=== PATIENT | female | born 1985 | race Caucasian/White ===

== ENCOUNTER 2016-11-02 02:49 | Emergency (ER) | payer SELFPAY ==
[~2016-11-02] VITALS: Ht 170.2 cm; Wt 150.0 kg
[~2016-11-02 02:49] MED LIST: ALEVE220 M2 PO; AUGMENTIN875 MG PO; BACTRIM,SEPT1 TABLET PO; BACTROBAN NASAL1 G1 BOTH NARES; CITALOPRAM HBR20 MG PO; COUMADIN10 MG PO; Coumadin,Jantoven PO; DICLOXACILLIN500 MG PO; DILAUDID2 MG PO; Diabeta,Micronase PO; ENDOCET 5-3251 EACH PO; GLUCOPHAGE500 MG PO; HIBICLENS118 ML TP; KEFLEX500 MG PO; MACROBID100 MG PO; MEDROL DOSEPAK4 MG PO; METFORMIN HCL500 MG PO; MOTRIN600 MG PO; MOTRIN800 MG PO; NAPROSYN375 MG PO; NAPROXEN500 MG PO; NARCAN4 MG NS; NOHOMEMEDS; NORCO 7.5/321 TABLET PO; PERCOCET 5/31 TABLET PO; TORADOL10 MG PO; TYLENOL EXTRA500 MG PO; ULTRAM50 MG PO; VALACYCLOVIR500 MG PO; VALIUM5 MG PO; ZOFRAN ODT4 MG PO
[2016-11-02 02:57] VITALS: BP 139/90
== END 2016-11-02 04:01 | disposition left against medical advice (07) ==
LOC: EME 02:49
DX: T40.2X1A Poisoning by other opioids, accidental (unintentional), initial encounter (principal); R10.30 Lower abdominal pain, unspecified; E11.9 Type 2 diabetes mellitus without complications; F17.200 Nicotine dependence, unspecified, uncomplicated; Z87.442 Personal history of urinary calculi; Z86.711 Personal history of pulmonary embolism
CPT/HCPCS: 99281; 99284; J2310

== ENCOUNTER 2017-03-19 20:30 | Emergency (ER) | payer OTHER ==
[~2017-03-19] VITALS: Ht 165.1 cm; Wt 109.0 kg
[2017-03-19 21:41] LABS: HEMATOCRIT 37.6 % (36.0-46.0); MCH 27.3 PG (29.0-34.0); MCV 82.8 FL (83-99); MEAN PLAT.VOLUME 9.5 uM^3 (9.5-12.4); PLATELET COUNT 177 K/uL (156-360); RBC DIS.WIDTH-CV 13.6 % (11.8-14.6); RBC DIS.WIDTH-SD 40.5 % (39-53); RED BLOOD COUNT 4.54 M/uL (3.80-5.20); WHITE BLOOD COUNT 14.4 K/uL (4.1-10.2)
[2017-03-19 21:50] LABS: CHLORIDE 104 mEq/L (99-109); POTASSIUM 3.4 mEq/L (3.7-5.4); SODIUM 137 mEq/L (136-147)
[2017-03-19 21:52] LABS: GLUCOSE 316 mg/dL (70-99)
[2017-03-19 21:53] LABS: ANION GAP 11 MEQ/L (2-14)
[2017-03-19 21:56] LABS: GFR ESTIMATE (CALCULATED) > 59 mL/min/; UREA NITROGEN (BUN) 8 mg/dL (9-23)
[2017-03-19 22:06] LABS: INTER. NORMALIZED RATIO 1.1; PROTHROMBIN TIME 11.5 (9.2-11.2)
[2017-03-19 22:39] LABS: ABS NEUTROPHIL COUNT 13.9; ANISOCYTOSIS 1+; EOSINOPHIL ABS CT 0; INSTRUMENT ABS NEUTROPHIL CT 13.8 K/uL; LYMPHOCYTES 1.8 % (15.0-45.0); PLAT.SUFFICIENCY DECREASED; SEG.NEUTROPHILS 58.4 % (46.0-76.0)
[2017-03-19] MEDS ORDERED: ULTRAM50 MG PO (23:57)
[2017-03-19] MEDS ORDERED: FLEXERIL10 MG PO (23:57)
[2017-03-20 00:25] VITALS: BP 103/65
== END 2017-03-20 00:26 | disposition home or self-care (01) ==
LOC: EME 20:30 → EXP 20:30
PROVIDERS: Emergency Medicine
DX: M54.2 Cervicalgia (principal); M54.6 Pain in thoracic spine; E11.9 Type 2 diabetes mellitus without complications; Z79.84 Long term (current) use of oral hypoglycemic drugs; Z86.711 Personal history of pulmonary embolism; J45.909 Unspecified asthma, uncomplicated; Z87.442 Personal history of urinary calculi; F17.200 Nicotine dependence, unspecified, uncomplicated; Z91.018 Allergy to other foods
CPT/HCPCS: 71010; 71275; 80048; 85025; 85610; 85730; 93005; 99281; 99285; J1885; J7030

== ENCOUNTER 2017-05-23 20:04 | Emergency (ER) | payer OTHER ==
[~2017-05-23] VITALS: Ht 165.1 cm; Wt 104.5 kg
[~2017-05-23 20:04] MED LIST changes: +FLEXERIL10 MG PO
[2017-05-23 21:07] LABS: HEMATOCRIT 36.2 % (36.0-46.0); MCH 27.4 PG (29.0-34.0); MCHC 32.6 G/DL (30.0-36.0); MCV 84.2 FL (83-99); MEAN PLAT.VOLUME 9.5 uM^3 (9.5-12.4); PLATELET COUNT 181 K/uL (156-360); RBC DIS.WIDTH-CV 13.4 % (11.8-14.6); RBC DIS.WIDTH-SD 41.2 % (39-53)
[2017-05-23 21:22] LABS: CHLORIDE 101 mEq/L (99-109); POTASSIUM 3.9 mEq/L (3.7-5.4); SODIUM 138 mEq/L (136-147)
[2017-05-23 21:24] LABS: GLUCOSE 131 mg/dL (70-99)
[2017-05-23 21:25] LABS: ANION GAP 13 MEQ/L (2-14)
[2017-05-23 21:26] LABS: TOTAL BILIRUBIN 0.4 mg/dL (0.0-1.0)
[2017-05-23 21:27] LABS: ALKALINE PHOSPHATASE 87 IU/L (3-129)
[2017-05-23 21:28] LABS: GFR ESTIMATE (CALCULATED) > 59 mL/min/
[2017-05-23 21:29] LABS: UREA NITROGEN (BUN) 9 mg/dL (9-23)
[2017-05-23 21:38] LABS: QUANTITATIVE HCG < 4.0 MIU/ML
[2017-05-23 22:09] LABS: ADD MIUA? YES; BILIRUBIN NEGATIVE; BLOOD NEGATIVE; COLOR YELLOW ((YELLOW)); GLUCOSE (STRIP) NEGATIVE; KETONES NEGATIVE; LEUKOCYTES LARGE; NITRITE NEGATIVE; PROTEIN (STRIP) NEGATIVE; SPECIFIC GRAVITY 1.023 (1.000-1.030); UROBILINOGEN 0.2 MG/DL (0.2-1.0)
[2017-05-23 22:29] LABS: BACTERIA 1+ /HPF; EPITHELIAL CELLS 3+ /HPF; MUCUS TRACE /LPF; UCUL ADDED? NO; WHITE BLOOD CELLS 20-30 /HPF (0-5)
[2017-05-23] MEDS ORDERED: MOTRIN800 MG PO (23:13)
[2017-05-23 23:27] VITALS: BP 124/76
[2017-05-25 14:04] LABS: CHLAMYDIA TRACHOMATIS NEGATIVE; NEISSERIA GONORRHOEAE NEGATIVE
== END 2017-05-23 23:28 | disposition home or self-care (01) ==
LOC: EME 20:04
PROVIDERS: Physician Assistant
DX: N83.202 Unspecified ovarian cyst, left side (principal); F17.200 Nicotine dependence, unspecified, uncomplicated; Z87.442 Personal history of urinary calculi; Z86.711 Personal history of pulmonary embolism; Z86.718 Personal history of other venous thrombosis and embolism; Z90.710 Acquired absence of both cervix and uterus
CPT/HCPCS: 76856; 80053; 81003; 84702; 85027; 87086; 87210; 87491; 87591; 99281; 99285; J1885

== ENCOUNTER 2017-06-14 23:13 | Emergency (ER) | payer OTHER ==
[~2017-06-14] VITALS: Ht 165.1 cm; Wt 115.8 kg
[2017-06-15] MEDS ORDERED: VIBRAMYCIN100 MG PO (01:44)
[2017-06-15 01:58] VITALS: BP 110/96
== END 2017-06-15 01:58 | disposition home or self-care (01) ==
LOC: EME 23:13
PROC: 0H9EXZZ Drainage of Left Lower Arm Skin, External Approach (ICD-10-PCS; principal; 2017-06-14)
DX: L02.414 Cutaneous abscess of left upper limb (principal); F17.200 Nicotine dependence, unspecified, uncomplicated

== ENCOUNTER 2017-07-25 06:14 | Emergency (ER) | payer OTHER ==
[~2017-07-25] VITALS: Ht 170.2 cm; Wt 112.2 kg
[~2017-07-25 06:14] MED LIST changes: +VIBRAMYCIN100 MG PO
[2017-07-25 06:56] LABS: EOSINOPHIL (%) 2.4 % (0-5); EOSINOPHIL COUNT 0.2 K/uL (0-0.3); HEMATOCRIT 37.7 % (36.0-46.0); IMMATURE GRANULOCYTE (%) 0.4 % (0.0-0.7); INSTRUMENT ABS NEUTROPHIL CT 6.7 K/uL; LYMPHOCYTE COUNT 2.5 K/uL (1.0-2.8); MCH 25.9 PG (29.0-34.0); MCHC 31.3 G/DL (30.0-36.0); MCV 82.9 FL (83-99); MEAN PLAT.VOLUME 9.6 uM^3 (9.5-12.4); MONOCYTE (%) 5.3 % (3-12); MONOCYTE COUNT 0.5 K/uL (0-0.8); NEUTROPHIL (%) 66.6 % (45-76); NEUTROPHIL COUNT 6.7 K/uL (1.8-6.4); PLATELET COUNT 143 K/uL (156-360); RBC DIS.WIDTH-CV 14.4 % (11.8-14.6); RBC DIS.WIDTH-SD 43.2 % (39-53); RED BLOOD COUNT 4.55 M/uL (3.80-5.20)
[2017-07-25 07:26] LABS: ANION GAP 8 MEQ/L (2-14); CHLORIDE 105 MEQ/L (99-109); GFR ESTIMATE (CALCULATED) > 59 mL/min/; GLUCOSE 197 mg/dL (70-99); POTASSIUM 4.6 MEQ/L (3.7-5.4); SAMPLE HEMOLYSIS CHECK 3; SAMPLE ICTERIC CHECK 0; SAMPLE LIPEMIA CHECK 0; SERUM ETHYL ALCOHOL < 10 mg/dL; SODIUM 139 MEQ/L (136-147); UREA NITROGEN (BUN) 9 mg/dL (9-23)
[2017-07-25 11:21] VITALS: BP 128/78
== END 2017-07-25 11:45 | disposition home or self-care (01) ==
LOC: EME → EDBD 06:14 → EME 06:14
PROVIDERS: Emergency Medicine
DX: T40.1X1A Poisoning by heroin, accidental (unintentional), initial encounter (principal); F32.9 Major depressive disorder, single episode, unspecified; Z86.711 Personal history of pulmonary embolism; Z86.718 Personal history of other venous thrombosis and embolism; F17.200 Nicotine dependence, unspecified, uncomplicated
CPT/HCPCS: 80048; 81003; 85025; 90839; 99281; 99284; G0480

== ENCOUNTER 2017-10-19 02:51 | Emergency (ER) | payer OTHER ==
[~2017-10-19] VITALS: Ht 165.1 cm; Wt 101.9 kg
[2017-10-19] MEDS ORDERED: KEFLEX500 MG PO (07:55)
[2017-10-19] MEDS ORDERED: BACTRIM,SEPT1 TABLET PO (07:55)
[2017-10-19] MEDS ORDERED: NORCO 5/3251 TABLET PO (07:57)
[2017-10-19 08:33] VITALS: BP 125/74
== END 2017-10-19 08:35 | disposition home or self-care (01) ==
LOC: EME 02:51
PROC: 0H9DXZZ Drainage of Right Lower Arm Skin, External Approach (ICD-10-PCS; principal; 2017-10-19)
DX: L02.413 Cutaneous abscess of right upper limb (principal); Z87.442 Personal history of urinary calculi; F41.9 Anxiety disorder, unspecified; F32.9 Major depressive disorder, single episode, unspecified; E11.9 Type 2 diabetes mellitus without complications; J45.909 Unspecified asthma, uncomplicated; Z86.711 Personal history of pulmonary embolism; Z86.718 Personal history of other venous thrombosis and embolism; F17.200 Nicotine dependence, unspecified, uncomplicated
CPT/HCPCS: 87070; 87075; 87077; 87147; 87186; 87205

== ENCOUNTER 2018-04-13 10:57 | Emergency (ER) | payer OTHER ==
[~2018-04-13] VITALS: Ht 165.1 cm; Wt 98.4 kg
[~2018-04-13 10:57] MED LIST changes: +NORCO 5/3251 TABLET PO
[2018-04-13] MEDS ORDERED: ULTRAM50 MG PO (12:51)
[2018-04-13 13:15] VITALS: BP 113/73
== END 2018-04-13 13:37 | disposition home or self-care (01) ==
LOC: EME 10:57
DX: S09.90XA Unspecified injury of head, initial encounter (principal); S00.91XA Abrasion of unspecified part of head, initial encounter; Y04.0XXA Assault by unarmed brawl or fight, initial encounter; Y92.480 Sidewalk as the place of occurrence of the external cause; E11.9 Type 2 diabetes mellitus without complications; F32.9 Major depressive disorder, single episode, unspecified; F41.9 Anxiety disorder, unspecified; J45.909 Unspecified asthma, uncomplicated; Z86.711 Personal history of pulmonary embolism; Z86.718 Personal history of other venous thrombosis and embolism; F17.200 Nicotine dependence, unspecified, uncomplicated
CPT/HCPCS: 70450; 70486; 99281; 99285

== ENCOUNTER 2018-04-18 20:18 | Emergency (ER) | payer OTHER ==
[~2018-04-18] VITALS: Ht 165.1 cm; Wt 98.0 kg
[2018-04-18 20:43] LABS: HEMATOCRIT 39.5 % (36.0-46.0); HEMOGLOBIN 13.7 G/DL (11.9-15.5); MCH 30.5 PG (29.0-34.0); MCHC 34.7 G/DL (30.0-36.0); PLATELET COUNT 213 K/uL (156-360); RBC DIS.WIDTH-CV 13.4 % (11.8-14.6); RED BLOOD COUNT 4.49 M/uL (3.80-5.20); WHITE BLOOD COUNT 6.2 K/uL (4.1-10.2)
[2018-04-18 20:55] LABS: ALBUMIN 3.6 g/dL (3.2-4.8); CHLORIDE 103 mEq/L (99-109); POTASSIUM 3.8 mEq/L (3.7-5.4); SODIUM 141 mEq/L (136-147)
[2018-04-18 20:57] LABS: GLUCOSE 177 mg/dL (70-99); TOTAL PROTEIN 6.8 g/dL (6.4-8.3)
[2018-04-18 20:59] LABS: TOTAL BILIRUBIN 0.7 mg/dL (0.0-1.0)
[2018-04-18 21:01] LABS: ALKALINE PHOSPHATASE 76 IU/L (3-129); CREATININE 0.8 mg/dL (0.6-1.3); GFR ESTIMATE (CALCULATED) > 59 mL/min/
[2018-04-18 21:02] LABS: UREA NITROGEN (BUN) 8 mg/dL (9-23)
[2018-04-18 21:03] LABS: AST (GOT) 27 IU/L (2-34)
[2018-04-18 21:04] LABS: ALT (GPT) 21 IU/L (3-49); LIPASE 15 U/L (1.0-51.0)
[2018-04-18 21:10] LABS: QUANTITATIVE HCG < 4.0 MIU/ML
[2018-04-19 00:53] LABS: APPEARANCE CLEAR ((CLEAR)); BILIRUBIN NEGATIVE; BLOOD NEGATIVE; COLOR STRAW ((YELLOW)); GLUCOSE (STRIP) NEGATIVE; KETONES NEGATIVE; LEUKOCYTES NEGATIVE; NITRITE NEGATIVE; PROTEIN (STRIP) NEGATIVE; SPECIFIC GRAVITY 1.004 (1.000-1.030); UCUL ADDED? NO; UROBILINOGEN 0.2 MG/DL (0.2-1.0)
[2018-04-19 00:56] LABS: AMPHETAMINE NEGATIVE (500 ng/mL); BARBITURATES NEGATIVE (200 ng/mL); BENZODIAZEPINES PRESUMPTIVE POSITIVE (150 ng/mL); BUPRENORPHINE NEGATIVE (10 ng/mL); COCAINE PRESUMPTIVE POSITIVE (150 ng/mL); METHADONE NEGATIVE (200 ng/mL); METHAMPHETAMINE NEGATIVE (500 ng/mL); OPIATES (MORPHINE) PRESUMPTIVE POSITIVE (100 ng/mL); OXYCODONE NEGATIVE (100 ng/mL); PHENCYCLIDINE NEGATIVE (25 ng/mL); PROPOXYPHENE NEGATIVE (300 ng/mL); THC CANNABINOIDS NEGATIVE (50 ng/mL); TRICYCLIC ANTIDEPRESSANTS NEGATIVE (300 ng/mL)
[2018-04-19 01:25] LABS: BENZODIAZEPINES, URINE SCREEN Negative (200 ng/mL)
[2018-04-19] MEDS ORDERED: BENTYL20 MG PO (01:32)
[2018-04-19] MEDS ORDERED: ZOFRAN ODT8 MG PO (01:32)
[2018-04-19] MEDS ORDERED: BACTRIM,SEPT1 TABLET PO (01:56)
[2018-04-19] MEDS ORDERED: KEFLEX500 MG PO (01:56)
[2018-04-19 02:06] VITALS: BP 117/64
== END 2018-04-19 02:08 | disposition home or self-care (01) ==
LOC: EME 20:18
DX: R10.84 Generalized abdominal pain (principal); R11.2 Nausea with vomiting, unspecified; S00.81XA Abrasion of other part of head, initial encounter; L08.9 Local infection of the skin and subcutaneous tissue, unspecified; R42 Dizziness and giddiness; E11.9 Type 2 diabetes mellitus without complications; Z86.711 Personal history of pulmonary embolism; Z86.718 Personal history of other venous thrombosis and embolism; Z87.442 Personal history of urinary calculi; Z90.711 Acquired absence of uterus with remaining cervical stump; X58.XXXA Exposure to other specified factors, initial encounter; Y09 Assault by unspecified means; F17.200 Nicotine dependence, unspecified, uncomplicated
CPT/HCPCS: 80053; 81003; 82948; 83690; 84702; 84999; 85027; 99281; 99284; J0500; J7030